=== PATIENT | male | born 1955 | race Caucasian/White ===

== ENCOUNTER 2021-12-29 21:34 | Emergency (ER) | payer MEDICARE ==
[~2021-12-29 21:34] MED LIST: ZOFRAN ODT 4 MG4 MG PO
[2021-12-29 22:06] LABS: HEMOGLOBIN 13.8 gm/dl (14.0-17.5); RED BLOOD COUNT 4.14 M/UL (4.20-5.50); WHITE BLOOD COUNT 6.4 K/UL (4.5-11.0)
[2021-12-29 22:36] LABS: BUN/CREATININE RATIO 16 (0-10)
== END 2021-12-30 02:59 | disposition home or self-care (01) ==
LOC: ER1 21:34
PROVIDERS: Student in an Organized Health Care Education/Training Program
DX: R07.89 Other chest pain (principal); I11.9 Hypertensive heart disease without heart failure; E78.5 Hyperlipidemia, unspecified; F17.200 Nicotine dependence, unspecified, uncomplicated
CPT/HCPCS: 71045; 80053; 82550; 82553; 84484; 85025; 93005; 99285